=== PATIENT | male | born 1985 | race Caucasian/White ===

== ENCOUNTER → 2017-02-20 | Outpatient (CLI) | payer MEDICAID ==
--- NOTE | 2017-02-20 09:05 | US ---
EXAMINATION TYPE: US scrotum with doppler. Grayscale and color Doppler Duplex imaging performed of ramya he scrotum. DATE OF EXAM: 02/20/2017 COMPARISON: NONE CLINICAL HISTORY: N50.812 left testicular pain. Left testicle pain x 2 months EXAM MEASUREMENTS: TESTICLES: Right Testicle: 3.8 x 1.8 x 3.5 cm Left Testicle: 4.2 x 2.0 x 3.2 cm EPIDIDYMIS HEAD: Right Epididymis: 0.8 cm Left Epididymis: 1.4 cm Doppler performed to assess for testicular vascularity; good bilateral color flow and waveforms are s een. Presence of hydroceles: fluid collection lateral/inferior to right testicle = 1.5cm and medial/super ior to left testicle = 3.3cm Presence of varicoceles: yes, medial to right testicle and lateral to left testicle There is small right scrotal fluid collection or hydrocele which is not completely anechoic. Prominen t vessels which increase with Valsalva are noted bilaterally but measure under 3 mm in diameter. Smal l left scrotal fluid collection or hydrocele is noted. Comparison view at end of study shows symmetri c blood flow to both testicles. IMPRESSION: No asymmetric increased or diminished blood flow to left testicle or epididymis noted.
== END | disposition home or self-care (01) ==
LOC: RADUSWWP 08:12
PROVIDERS: ATTEND Family Medicine
DX: N50.812 Left testicular pain (principal)
CPT/HCPCS: 76870; 93975

== ENCOUNTER → 2017-07-16 | Outpatient (CLI) | payer MEDICAID ==
--- NOTE | 2017-07-16 13:04 | XR ---
EXAM TYPE: LUMBAR SPINE X RAY SERIES COMPARISON: NONE HISTORY: Pain TECHNIQUE: 3 views are submitted. FINDINGS: Alignment is anatomic. The pedicles are intact. The transverse processes are intact. There is no s pondylolisthesis. Surgical clips in the gallbladder fossa. Degenerative disc disease L4-5 and L5-S1. IMPRESSION: 1. Degenerative disc disease L4-5 and L5-S1. Consider MRI follow-up.
== END | disposition home or self-care (01) ==
LOC: RADXRMAIN 12:39
PROVIDERS: ATTEND Family Medicine
DX: M51.37 Other intervertebral disc degeneration, lumbosacral region (principal)
CPT/HCPCS: 72100

== ENCOUNTER → 2017-08-08 | Outpatient (CLI) | payer MEDICAID ==
--- NOTE | 2017-08-08 07:54 | MR ---
EXAMINATION TYPE: MR lumbar spine wo con DATE OF EXAM: 08/08/2017 7:42 AM COMPARISON: NONE HISTORY: DJD, back pain Multiplanar, MultiSpin echo imaging of the lumbar spine was performed. L1-L2: Normal disc appearance without desiccation. No herniation, protrusion or disc bulging. No ca nal stenosis is present. Foramina are patent bilaterally. L2-L3: Normal disc appearance without desiccation. No herniation, protrusion or disc bulging. No ca nal stenosis is present. Foramina are patent bilaterally. L3-L4: Normal disc appearance without desiccation. No herniation, protrusion or disc bulging. No ca nal stenosis is present. Foramina are patent bilaterally. L4-L5: There is mild disc desiccation noted. Posterior disc bulge with annular tear identified. Mild effacement ventral thecal sac. No evidence for central stenosis or lateral recess stenosis. Foramina are patent bilaterally. L5-S1: Moderate disc desiccation. Posterocentral subligamentous disc herniation effaces the ventral t hecal sac and may result in intermittent right lateral recess stenosis. No evidence for foraminal enc roachment. Lumbar segments are intact. No paraspinal masses are identified. Conus medullaris has a normal appe arance. IMPRESSION: 1. Degenerative disc disease as noted. 2. Subligamentous disc herniation L5-S1 as discussed. Posterior disc bulge L4-5 with annular tear.
== END | disposition home or self-care (01) ==
LOC: RADMRIMAIN 07:09
PROVIDERS: ATTEND Family Medicine
DX: M51.27 Other intervertebral disc displacement, lumbosacral region (principal); M51.36 Other intervertebral disc degeneration, lumbar region
CPT/HCPCS: 72148

== ENCOUNTER → 2017-12-12 | Outpatient (CLI) | payer MEDICAID ==
[2017-12-10 15:58] VITALS: BMI 38.0
[2017-12-12 12:05] VITALS: BP 142/82; PULSE 68; RESP 18
--- NOTE | 2017-12-12 12:33 | P.PAINCN ---
History of Present Illness - Reason for Consult Consult date: 12/12/17 - History of Present Illness 32 years old male with a chronic history of severe low back pain with radiation to the right lower extremity, pain started 7 months ago while he was working on his garage, he was sweeping , he hit his back against the metal door in his garage, and from that time he started complaining of severe low back pain with radiation to the right lower extremity associated with numbness and tingling sensation, he tried course of oral steroids which helped for temporary relief, and he did physical therapy which provided him with some benefit but he continued to have significant amount of pain that is interfering with his ability to function and work, he denies any fever or night sweats denies any change in the bowel movement or urination and no motor or sensory deficits. Past Medical History Past Medical History: Osteoarthritis (OA), Skin Disorder Additional Past Medical History / Comment(s): MRI showed arthritis in lower back , back injury 8 months ago, "bulging disks", eczema, History of Any Multi-Drug Resistant Organisms: None Reported Past Surgical History: Cholecystectomy Past Anesthesia/Blood Transfusion Reactions: No Reported Reaction Additional Past Anesthesia/Blood Transfusion Reaction / Comm: no family hx on fathers side Smoking Status: Current every day smoker - Past Family History Mother Family Medical History: Cancer Additional Family Medical History / Comment(s): breast Medications and Allergies Home Medications Medication Instructions Recorded Confirmed Type Naproxen Sodium [Aleve] 220 mg PO Q12HR PRN 12/10/17 12/10/17 History Allergies Allergy/AdvReac Type Severity Reaction Status Date / Time No Known Allergies Allergy Verified 12/10/17 15:50 Physical Exam Vitals: Vital Signs Pulse Resp BP Pulse Ox 12/12/17 11:58 68 18 142/82 97 - Constitutional Social history : smoker , NO ETOH , NO Illegal drugs use . Review of Systems : 1- Constitutional : no chills , no fever , no night sweats , 2- Ears : no ear discharge , no change in hearing 3-Nose, Mouth ,Throat ; no bleeding gums, no sore throat , no epistaxis , 4-Cardiovascular : Denies chest pain, , no orthopnea , no palpitation 5-Respiratory : Denies cough , no dyspnea , no hemoptysis 6-Gastrointestinal :, no change in bowel habits , no coffee- ground emesis . 7-Genitourinary : No hematuria , no discharge , no incontinence, 8-Musculoskeletal : No gait dysfunction , report low back pain , 9- Neurological : no ataxia , no tremor , no sezure , 10-Psychatric , no suicidal ideation no hallucination 11- Endocrine : no cold intolerence , no polyuria , no polydypsia , 12-Hematologic : no easy bleeding , no easy brusing , 13-Allergic / immunology : no angioedema , no wheezing ,no allergic rhinitis 14-Integumentary : no brttle nails , no change hair / nails , no foot/leg ulcers . Physical Examinations : 1-Constitutional : Cooperative , not in acute distress . 2-HEENT : nech ; supple , no Lymphadenopathy , no Thyromegaly , :eyes , no icterus, no photophobia . ENT : , normal oropharynx , no Thrush 3- Respiratory : Chest clear to auscultations Bilaterally , no wheezing . 4- Cardiovascular : regular rate and rhythem , S1 , S2 , no S3 , no S4. 5- Gastrointestinal: abdomen soft no tenderness , no organomegally . 6- Genitourinary : Defferred . 7-Integumentary : No cellulitis , no ulcers , normal skin turgor , no cyanotic . 8- neurologic : Cranial nerve II to XII intact , no focal neurological deffecit 9-psychatric : alert , oriented X 3 , appropriate affect , intact judgment and insight . 10-Lymphatic : no Lymphadenopathy. 11- musculoskeltal: normal gait . Lumber spine moter stegnth lower extremities ,thigh and legs 5/5 Right side , 5/5 Left side deep tendon reflexes : normal Knee Jerk , normal ankle Jerk negative lumber facet Loading Test Range of motion of the lumbar spine Flexion 60 degrees, extension 30 degrees strait leg raising test , positive at 30 degree right side, and its negative on the left side Fabere test positive RT ,and negative LT . Results Labs: MRI of the lumbar spine done 08/08/2017 L4 5 and L5-S1 disc this occasion and L5 -S1 posterior central disc herniation Assessment and Plan Plan: Assessment and plan=1-lumbar radiculopathy 2-lumbar disc herniation. Patient will be good candidate to have right- sided transforaminal epidural steroid injection at the L4 5, and L5-S1 under fluoroscopy guidance, procedure risk and benefits and alternatives discussed with the patient and he agreed with proceeding Time with Patient: Greater than 30 PQRS Measure Charge Sheet Measure #130: Documentation of Current Meds in Medical Chart: Patient's medications documented in chart Measure #226: Tobacco Use: Screen & Cessation Intervention: Pt screened for tobacco use AND intervention given Measure #111: Pneumonia Vaccination: Pneumococcal vaccine NOT administered or previously given Measure #47: Advance Care Plan: Advance care planning discussed & documented, pt chose/unable to give Measure #412: Opioid Treatment Agreement: No documentation of signed opioid treatment agreement Measure #408: Opioid Therapy Follow-up Evaluation: Patient had NO f/u eval minimum every 3 months during opioid therapy Measure #317: Preventitive Care & Scrn High Bld Press & F/U: Pre-hypertensive or hypertensive BP documented, pt will f/u with PCP Measure #128: Body Mass Index (BMI) Screening & Follow-up: BMI documented ABOVE normal parameters - f/u documented Measure #131: Pain Assessment & Follow-up: Pain positive & plan documented, Follow-up scheduled Measure #431: Unhealthy Alcohol Use Preventative Care & Scrn: Patient not identified as an unhealthy alcohol user PQRS Narrative: Smoking Status Current every day smoker Do You Want the Pneumonia No Vaccine AT THIS TIME? Blood Pressure 142/82 Pain Intensity [Right Lower 6 Back] Scale Used Numeric (1 - 10) Hx Alcohol Use (MH) Yes Home Medications: Ambulatory Orders Naproxen Sodium [Aleve] 220 mg PO Q12HR PRN 12/10/17
== END | disposition home or self-care (01) ==
LOC: PNWHC3 11:43
PROVIDERS: ATTEND Specialist
DX: G89.29 Other chronic pain (principal); M51.16 Intervertebral disc disorders with radiculopathy, lumbar region; F17.200 Nicotine dependence, unspecified, uncomplicated; Z79.1 Long term (current) use of non-steroidal anti-inflammatories (NSAID)
CPT/HCPCS: 99211

== ENCOUNTER 2017-12-19 09:21 | Day surgery (SDC) | payer MEDICAID ==
[2017-12-17 16:08] VITALS: BMI 38.0
[~2017-12-19 09:21] MED LIST: LACTATED RINGERS 1,000 ML IV SCH
[2017-12-19 10:04] VITALS: RESP 16
[2017-12-19] MEDS ORDERED: LIDOCAINE 1% 20 ML VIAL (10MG/ML) FOR IV START INTRADERMA ONE (10:06)
[2017-12-19] MEDS ORDERED: LACTATED RINGERS 1,000 ML IV ONE (11:42)
--- NOTE | 2017-12-19 11:44 | P.PCN ---
Date of Procedure: 12/19/17 Description of Procedure: PREOPERATIVE DIAGNOSIS: Lumbar radiculopathy POSTOPERATIVE DIAGNOSIS: Lumbar radiculopathy PROCEDURE 1. Transforaminal epidural steroid injection under fluoroscopic guidance right L4-L5, L5-S1 2. Lumbar epidurogram ANESTHESIA: Local with 1% lidocaine 3 ml ; IV conscious sedation with Versed 2 mg and fentanyle 100 micrograms. PROCEDURE INDICATION: The patient with low back pain and radiculopathy symptoms unresponsive to conservative treatment. PROCEDURE DESCRIPTION / TECHNIQUE: The patient was seen and identified in the preoperative area. Risks, benefits, complications, and alternatives were discussed with the patient. The patient agreed to proceed with the procedure and signed the consent. IV was started, and vital signs were stable. Patient was taken to the OR and time out was completed. The patient was placed in the prone position on procedure table and a pillow was placed under the abdomen to reduce lumbar lordosis. The lumbosacral area was prepped and draped in the usual sterile fashion. Vital signs were closely monitored during the procedure. Conscious sedation was used. The infraneural approach was utilized during this procedure Using oblique fluoroscopy, the chin of the ``Vignesh dog at RIGHT [id number] and the skin and deeper tissues just below was localized with 1% lidocaine. Subsequently, a 22-gauge 3.5-inch spinal needle was advanced under a tunneled view fluoroscopic guidance just lateral to the superior articular process of RIGHT L4. Under lateral fluoroscopy, the needle was then advanced to the posterior border of the L4-L5 interforaminal space. After negative aspiration of CSF and blood and with no paresthesias, 1 mL of Omnipaque-240 contrast dye was injected excellent epidurogram and outlining L L4 nerve root. Subsequently , of the 8ml solution consisting of 20mg/ml dexamethasone with 6 ml PF normal saline, 4 ml injected at L2-L3 space. Needle was removed and the same procedure was repeated at the Right L5-S1 space. At the end of the procedure, skin was cleansed, and bandages were applied. COMPLICATIONS: None COMMENTS: DISPOSITION / PLANS: The patient was placed in a supine position and transferred to the recovery area in a stable condition for observation. There was no evidence of lower extremity motor or sensory deficit after the procedure. Patient was discharged from the recovery room after meeting discharge criteria. Home discharge instructions were given to the patient by the staff. The patient was reexamined prior to discharge. We'll repeat procedure in 4 weeks time
[2017-12-19 11:59] VITALS: BP 107/69; PULSE 69
--- NOTE | 2017-12-19 12:00 | FL ---
EXAMINATION TYPE: FL guided pain mgmt statistic DATE OF EXAM: 12/19/2017 HISTORY: Flouroscopy time 24 seconds of fluoroscopy provided. IMPRESSION: 1. Fluoroscopy time.
== END 2017-12-19 12:20 | disposition home or self-care (01) ==
LOC: ORPAIN 09:21
PROVIDERS: ATTEND Anesthesiology
DX: G89.29 Other chronic pain (principal); M54.16 Radiculopathy, lumbar region; M51.17 Intervertebral disc disorders with radiculopathy, lumbosacral region; M19.90 Unspecified osteoarthritis, unspecified site; F17.200 Nicotine dependence, unspecified, uncomplicated
CPT/HCPCS: 64483; 64484; 99152

== ENCOUNTER 2018-01-03 08:24 | Day surgery (SDC) | payer MEDICAID ==
[2017-12-27 15:25] VITALS: BMI 36.9
[2018-01-03 09:09] VITALS: TEMP 98.4
[2018-01-03] MEDS ORDERED: LACTATED RINGERS 1,000 ML IV SCH (09:15)
[2018-01-03] MEDS ORDERED: LIDOCAINE 1% 20 ML VIAL (10MG/ML) FOR IV START INTRADERMA ONE (09:17)
--- NOTE | 2018-01-03 10:24 | P.PCN ---
Date of Procedure: 01/03/18 Procedure(s) Performed: DESCRIPTION OF PROCEDURE(S): PREOPERATIVE DIAGNOSIS: Lumbar radiculopathy POSTOPERATIVE DIAGNOSIS: Lumbar radiculopathy PROCEDURE 1. Transforaminal epidural steroid injection under fluoroscopic guidance RIGHT L4, L5 2. Lumbar epidurogram ANESTHESIA: IV sedation with Versed 2 mg and fentanyle 100 micrograms. PROCEDURE INDICATION: The patient with low back pain and radiculopathy symptoms unresponsive to conservative treatment. PROCEDURE DESCRIPTION / TECHNIQUE: The patient was seen and identified in the preoperative area. Risks, benefits, complications, and alternatives were discussed with the patient. The patient agreed to proceed with the procedure and signed the consent. IV was started, and vital signs were stable. Patient was taken to the OR and time out was completed. The patient was placed in the prone position on procedure table and a pillow was placed under the abdomen to reduce lumbar lordosis. The lumbosacral area was prepped and draped in the usual sterile fashion. Vital signs were closely monitored during the procedure. Conscious sedation was used. Using oblique fluoroscopy, the chin of the ``Vignesh dog at RIGHT L3 pedicle and the skin and deeper tissues just below was localized with 1% lidocaine. Subsequently, a 25-gauge 3.5-inch spinal needle was advanced under a tunneled view fluoroscopic guidance just underneath the chin of the ``Vignesh dog RIGHT L4. Under lateral fluoroscopy, the needle was then advanced to the posterior border of the L3 and [id number] space. After negative aspiration of CSF and blood and with no paresthesias, 1 mL of Omnipaque-240 contrast dye was injected excellent epidurogram and outlining L4 nerve root. Subsequently, 0.25 % bupivicaine, 10mg dexamethasone, normal saline was injected with a total of 2.5ml per level after negative aspiration. Needle was removed and the same procedure was repeated at the Right L4-L5 space. At the end of the procedure, skin was cleansed, and bandages were applied. COMPLICATIONS: None COMMENTS: DISPOSITION / PLANS: The patient was placed in a supine position and transferred to the recovery area in a stable condition for observation. There was no evidence of lower extremity motor or sensory deficit after the procedure. Patient was discharged from the recovery room after meeting discharge criteria. Home discharge instructions were given to the patient by the staff. The patient was reexamined prior to discharge. We'll repeat procedure in 4 weeks time
[2018-01-03] MEDS ORDERED: IV FLUID CONTINUATION 450 ML IV ONE (10:30)
[2018-01-03 10:37] VITALS: RESP 16
[2018-01-03 10:54] VITALS: BP 114/59; PULSE 73
--- NOTE | 2018-01-03 13:01 | FL ---
Fluoroscopy HISTORY: Pain 16 seconds fluoroscopy time supplied to the referring clinician. 1 intraoperative C-arm images docum ent the procedure. See dictated report from anesthesia.
== END 2018-01-03 11:03 | disposition home or self-care (01) ==
LOC: ORPAIN 08:24
PROVIDERS: ATTEND Hospitalist
DX: M54.16 Radiculopathy, lumbar region (principal)
CPT/HCPCS: 64483; J2250; J1100; J3010; Q9966; 99152

== ENCOUNTER → 2018-02-14 | Outpatient (CLI) | payer MEDICAID ==
[2018-02-14 14:01] VITALS: BP 129/75; PULSE 73; RESP 18
--- NOTE | 2018-02-14 14:17 | P.PN ---
Subjective Progress Note Date: 02/14/18 This is a follow-up visit for this 32 years old male with a chronic history of severe low back pain with radiation to the right lower extremity diagnosed with lumbar radiculopathy, with done right-sided transforaminal epidural steroid injection at L4 5 and at L5-S1 levels, the procedure was done twice currently , he reports he has no pain in his pain completely gone after the transforaminal epidural steroid injection is very happy with the result of the treatment, he denies any motor or sensory deficit he denies any fever or night sweats. Objective - Vital Signs Vital signs: Vital Signs Temp Pulse 73 02/14/18 13:54 Resp 18 02/14/18 13:54 BP 129/75 02/14/18 13:54 Pulse Ox 95 02/14/18 13:54 Intake & Output 02/13/18 02/14/18 02/14/18 18:59 06:59 18:59 Weight 113.398 kg - Exam Physical Examinations : 1-Constitutiona : Cooperative , not in acute distress . 2- musculoskeltal : Lumber spine moter stegnth lower extremities , thigh and legs 5/5 Right side , 5/5 Left side Assessment and Plan Plan: Assessment and plan=lumbar radiculopathy Pain improved after right-sided transforaminal epidural steroid injections L4 5/L5-S1 He will follow up with the pain clinic when necessary Time with Patient: Less than 30
== END | disposition home or self-care (01) ==
LOC: PNWHC3 13:47
PROVIDERS: ATTEND Specialist
DX: M54.16 Radiculopathy, lumbar region (principal)
CPT/HCPCS: 99211

== ENCOUNTER → 2020-02-09 | Outpatient (CLI) | payer MEDICAID ==
[2020-02-09 13:02] VITALS: BP 129/87; PULSE 72; RESP 16; TEMP 98.3
--- NOTE | 2020-02-09 13:20 | P.PN ---
Subjective Progress Note Date: 02/09/20 This is a 34-year-old gentleman with history of lower back pain and radiation to the right leg down to the knee level. The patient denies any paresthesia in the right lower extremity or any weakness. He also denies any bowel or bladder dysfunction. The pain comes in episodes which last for a few days and then goes away for 1 or 2 days and then comes back for a few days. The patient uses [id number] medications for his pain. He did have transforaminal epidural steroid injection at the L4 5 and L5-S1 level about 2 years ago which gave him good and prolonged pain relief and he is requesting to have the same procedure done again. Patient denies new-onset weakness, bowel/bladder incontinence, or any other signs or symptoms of cauda equina syndrome. There are no signs of acute intoxication, and no indications of medication diversion or overuse. In addition to above, 13-point review of systems is also negative for chest pain, shortness of breath, changes in vision, changes in hearing, new onset weakness, abdominal pain, diarrhea, extreme fatigue, malaise, fever, skin changes, homicidal or suicidal ideation, or bowel or bladder incontinence. Vital Signs: Reviewed in EMR Gen: AAOx3, NAD HEENT: PERRLA,hearing grossly normal Pulm: resp unlabored Neck: supple, trachea midline Neuro exam of the lower extremities: Normal bilaterally Straight leg raising test: Mildly positive on the right side Elkin's test: Negative bilaterally Tenderness in the paravertebral musculature: Positive on the lumbar paravertebral musculature on the right side Neuro: CN II-XII grossly intact, Imaging: Reviewed in EMR/chart Assessment: Lumbar spondylosis without myelopathy Right lumbar neuro foraminal stenosis and leg pain Plan: 1. Explanation: Opioid and psychological risk scores were reviewed. Diagnoses, prognoses, and multiple treatment options including but not limited to physical therapy, interventional therapies, adjuvant medical therapies, narcotic medication therapies, and surgery were discussed with the patient and all questions were answered to the patient's satisfaction. 2. Opioid agreement: Signed with the patient and the patient is warned not to use opioids while driving or before driving and not to combine opioids with benzodiazepines or alcohol. 3. Counseling: The patient was counseled extensively on SMOKING CESSATION, BODY MASS INDEX, EXERCISE. Specifically, the patient was instructed regarding the importance of smoking cessation, obesity, and exercise in the context of both chronic pain and overall health. 4. Procedures: Scheduled for transforaminal epidural steroid injection at the L4 5 and L5-S1 level on the right side under fluoroscopic guidance 5. Consultations: None 6. Investigations: None 7. Medications: None 8. Disposition: Return for the above-mentioned procedure as soon as possible 9. Maps were reviewed and were appropriate. Objective - Vital Signs Vital signs: Vital Signs Temp 98.3 F 02/09/20 12:56 Pulse 72 02/09/20 12:56 Resp 16 02/09/20 12:56 BP 129/87 02/09/20 12:56 Pulse Ox 97 02/09/20 12:56
== END | disposition home or self-care (01) ==
LOC: PNWHC3 12:38
PROVIDERS: ATTEND Anesthesiology
DX: M48.061 Spinal stenosis, lumbar region without neurogenic claudication (principal); M47.816 Spondylosis without myelopathy or radiculopathy, lumbar region
CPT/HCPCS: 99211

== ENCOUNTER 2020-03-02 11:05 | Day surgery (SDC) | payer MEDICAID ==
[2020-03-01 13:09] VITALS: BMI 37.2
[2020-03-02 11:22] VITALS: RESP 18; TEMP 98
[2020-03-02] MEDS ORDERED: DEXAMETHASONE SOD PHOSPHATE 10 MG/ML 1 ML VIAL ONE (12:33)
[2020-03-02] MEDS ORDERED: IOPAMIDOL M200 10 ML VIAL ONE (12:33)
[2020-03-02] MEDS ORDERED: LIDOCAINE 1% INJ 10MG/ML (20 ML MDV) ONE (12:33)
--- NOTE | 2020-03-02 12:52 | P.PCN ---
Date of Procedure: 03/02/20 Surgeon: Thomas Rivas Pathology: none sent Condition: stable Disposition: PACU Description of Procedure: PREOPERATIVE DIAGNOSIS: Lumbar radiculopathy POSTOPERATIVE DIAGNOSIS: Lumbar radiculopathy PROCEDURE 1. Transforaminal epidural steroid injection under fluoroscopic guidance at L4 5 on the right side 2. Lumbar epidurogram. SURGEON: Thomas Rivas MD [employer]ER: ANESTHESIA: Local with 1% lidocaine; IV sedation with Versed and fentanyl. EBL: Minimal PROCEDURE INDICATION: The patient with low back pain and radiculopathy symptoms unresponsive to conservative treatment. PROCEDURE DESCRIPTION / TECHNIQUE: The patient was seen and identified in the preoperative area. Risks, benefits, complications, and alternatives were discussed with the patient. The patient agreed to proceed with the procedure and signed the consent. IV was started, and vital signs were stable. Patient was taken to the OR and time out was completed. The patient was placed in the prone position on procedure table and a pillow was placed under the abdomen to reduce lumbar lordosis. The lumbosacral area was prepped and draped in the usual sterile fashion. Critical pause was taken. Vital signs were closely monitored during the procedure. Conscious sedation was used during the procedure to decrease patients anxiety. The vertebral body of the lumbar vertebra L4 was squared off by tilting the C-arm cephalad then the C-arm was tilted to the right oblique position and the target point was at the 6 o'clock position of the pedicle of L4 then skin and deeper tissues were localized with 1% lidocaine. Subsequently, a 22-gauge 3.5-inch spinal needle was advanced under a tunneled view fluoroscopic guidance just underneath the chin of the Vignesh dog at the . Under lateral fluoroscopy, the needle was then advanced to the middle of the upper one third of the foramen between( L4 and L5). After negative aspiration of CSF and blood and with no paresthesias, 1 mL of omnipaque contrast dye was injected excellent epidurogram and outlining of the L nerve root was identified. Subsequently, 2 mL of block solution containing 10 mg of Decadron and 1 mL of Lidocaine 1% PF was injected. Needle was removed and the same . At the end of the procedure, skin was cleansed, and bandages were applied. COMPLICATIONS: None COMMENTS: DISPOSITION / PLANS: The patient was placed in a supine position and transferred to the recovery area in a stable condition for observation. There was no evidence of lower extremity motor or sensory deficit after the procedure. Patient was discharged from the recovery room after meeting discharge criteria. Home discharge instructions were given to the patient by the staff.
[2020-03-02 13:09] VITALS: BP 131/79; PULSE 69
--- NOTE | 2020-03-02 14:13 | FL ---
Fluoroscopy HISTORY: Pain 13 seconds fluoroscopy time supplied to the referring clinician. 4 intraoperative C-arm images docum ent the procedure. See dictated report from anesthesia.
--- NOTE | 2020-03-04 10:21 | CDI ---
Outpatient Documentation Clarification Form Date: 03/04/20 CDS/Tax Compliance Representative Name: Brittanie Houston Phone: If any questions, call Viviana Han [employer] at [phone] Patient Name: Clinton Almeida Admit Date: 03/02/20 Discharge Date: 03/02/20 ATTENTION: The [facility] Coding Staff appreciate your assistance in clarifying documentation. Please respond to the clarification below the line at the bottom and electronically sign. The [facility] Coding staff will review the response and follow-up if needed. Please note: Queries are made part of the Legal Health Record. If you have any questions, please contact the [employer]. Dear Dr. Rivas, Please provide clarification as to whether Moderate/conscious sedation was used. The operative report states Local with 1% lidocaine: IV sedation with Versed and Fentanyl. The Pain Procedure Record under Anesthesia Plan has Moderate sedation checked but there are not dosage amount with the times under versed and fentanyl. Please clarify. Thank you for your kind consideration. MTDD
== END 2020-03-02 13:20 | disposition home or self-care (01) ==
LOC: ORPAIN 11:05
PROVIDERS: ATTEND Anesthesiology
DX: M54.16 Radiculopathy, lumbar region (principal); E66.9 Obesity, unspecified; Z68.38 Body mass index [BMI] 38.0-38.9, adult
CPT/HCPCS: 64483; J1100; J2001; Q9966

== ENCOUNTER → 2023-03-06 | Outpatient (CLI) | payer OTHER ==
--- NOTE | 2023-03-06 12:33 | MR ---
EXAMINATION TYPE: MR lumbar spine wo con DATE OF EXAM: 03/06/2023 COMPARISON: MRI lumbar spine 08/08/2017 HISTORY: Chronic low back pain, RLE radiculopathy. TECHNIQUE: Multiplanar, multisequence images of the lumbar spine were acquired without IV contrast. FINDINGS: Lumbar segments are intact. No paraspinal masses are identified. Conus medullaris has a normal appe arance. Disc desiccation at L4-L5 and L5-S1. T12-L1: No herniation, protrusion or disc bulging. No canal stenosis is present. Foramina are paten t bilaterally. L1-L2: No herniation, protrusion or disc bulging. No canal stenosis is present. Foramina are patent bilaterally. L2-L3: No herniation, protrusion or disc bulging. No canal stenosis is present. Foramina are patent bilaterally. L3-L4: No herniation, protrusion or disc bulging. No canal stenosis is present. Foramina are patent bilaterally. L4-L5: Broad-based disc bulge with annular fissure redemonstrated. No significant central canal steno sis. No neural foraminal stenosis. L5-S1: Central disc protrusion with mild effacement of the anterior thecal sac redemonstrated. No sig nificant neural foraminal stenosis. Disc abuts the exiting right L5 nerve root (series 401, image 11) . IMPRESSION: 1. Overall stable examination with L5-S1 disc herniation with mild central canal stenosis and abutme nt of the exiting right L5 nerve root. 2. Disc bulge L4-L5 with annular fissure redemonstrated. No significant central canal stenosis at th is level.
== END | disposition home or self-care (01) ==
LOC: RADMRIMAIN 10:25
PROVIDERS: ATTEND Orthopaedic Surgery Orthopaedic Surgery of the Spine
DX: M48.061 Spinal stenosis, lumbar region without neurogenic claudication (principal); M51.16 Intervertebral disc disorders with radiculopathy, lumbar region; M51.17 Intervertebral disc disorders with radiculopathy, lumbosacral region; M62.830 Muscle spasm of back
CPT/HCPCS: 72148

== ENCOUNTER → 2023-04-03 | Outpatient (CLI) | payer OTHER ==
[2023-04-03 09:51] VITALS: BP 116/72; PULSE 65; RESP 16; TEMP 98.1
--- NOTE | 2023-04-03 09:55 | P.PAINPG ---
PQRS Measure Charge Sheet Comment: HISTORY OF PRESENT ILLNESS: A 37 yr old male as a referral from Dr Crocker presents today w severe and chronic R sided LBP x 4 yrs secondary to DDD, spondylosis and facet arthropathy without myelopathy for evaluation. Pt states pain level is provoked at 8 /10 in intensity, constant, localized in the R lower lumbar spine, predominantly axial, achy in character w occasional shooting pain towards the R lateral calf. Pain is provoked by bending & lifting. Pain is alleviated by PT 4 yrs ago w physician guided home exercises daily since, medications (Tyl, Ibu), topicals, alteranting heating pad use, reclining, repositioning and rest. Oswestry axial pain score at 22 . PMH: OA PSH: R TFESI L4-L5 x3 (2019), R TFESI L5-S1 x1 (2019), Lap Cholecystectomy (2015) SH: Daily tobacco use, No ETOH abuse, No illicit drug use FH: Mo- Breast CA All: See list Meds: See list REVIEW OF ORGAN SYSTEMS: CONSTITUTIONAL: No fevers or chills. No recent weight loss. NEUROLOGICAL: + numbness and tingling along the distal extremities. No seizure disorders or headaches. MUSCULOSKELETAL: + pain PSYCHIATRIC: Denies current depression or suicidal thoughts. Physical Examinations : Constitutional : Cooperative , not in acute distress . Neurologic : Cranial nerve II to XII intact. No focal neurological deficits. Psychiatric : alert & oriented x 3. Matching mood & appropriate affect. Judgment & insight intact. Musculoskeletal : Cervical Spine Motor strength in the deltoid and biceps: Normal right side. Normal Left side Motor strength biceps and the wrist extensors: Normal right side . Normal left side Motor strength in the triceps muscle: Normal right side. Normal left side Deep tendon reflexes: Normal at the biceps. Normal at Brachioradialis. Normal at triceps Vertebral body tenderness to deep palpation over Cervical facet loading test: positive bilaterally Spurling test: positive bilaterally Neck distraction test: positive bilaterally Asya sign: positive bilaterally Lumbar spine Motor strength lower extremities ,thigh and legs 5/5 Right side , 5/5 Left side Deep tendon reflexes : Normal Knee Jerk. Normal Ankle Jerk Vertebral body tenderness over L5 Boles Test positive Lumbar facet Loading Test: positive Right / positive Left Range of motion of the lumbar spine Flexion 30 degrees, extension 10 degrees Straight Leg Raise test: Left/ Right positive at <35 degrees Tara test: positive right / positive left. Severe tenderness over the Sacroiliac joint on the Right / Left sides Gaenslen test: positive bilaterally Seated flexion test: positive bilaterally. Sacral spine : Severe tenderness over the Sacroiliac joint: right side / left side Range of motion: Flexion of the lumbar spine <60 degrees Range of motion: Extension of the lumbar spine <20 degrees Gaenslen's Test positive Tara test: positive right side / left side Thigh Thrust Test Sacral Thrust Test Imaging: Noncontrast of the lumbar spine from 03/06/23 reviewed Assessment/ Plan : Lumbar DDD Recommendation of R TFESI L5-S1 #1. May need a series of injections for optimal pain relief. Risks, benefits of procedure discussed and patient verbalized understanding. Admits to anti- coagulant use or medical history of diabetes. Protocol for discontinuation/ continuation of medications mane procedure di scussed. All questions answered. I have spent greater than 30 minutes on patient care today. Dr Pride was available by phone for the evaluation of this patient. The time was used to review the medical records including relevant urine studies and Prescription history (MAPs), review of the available imaging, evaluation and examination of the patient, coordination of care with the medical staff and if applicable referring physicians, as well as creation of the medical record - Pain Location Bilateral Lower Back Non-Pharmacological Interventions: Home Exercise, Position/Reposition, Stretching Pharmacological Interventions: Epidural, PRN Medication PQRS Narrative: Smoking Status Current some day smoker Hx Alcohol Use (MH) Yes: rare Home Medications: Ambulatory Orders Acetaminophen Tab [Tylenol] 650 mg PO Q4H PRN 02/06/20 Ibuprofen [Motrin Ib] 800 mg PO Q8H PRN 02/09/20 Controlled Substance Measures - Controlled Substance Measures Is patient prescribed a controlled substance at discharge?: No
== END ==
LOC: PNWHC3 08:53
PROVIDERS: ATTEND Specialist
DX: M54.16 Radiculopathy, lumbar region (principal); M54.50 Low back pain, unspecified; M54.14 Radiculopathy, thoracic region; M51.36 Other intervertebral disc degeneration, lumbar region; F17.200 Nicotine dependence, unspecified, uncomplicated
CPT/HCPCS: 99211

== ENCOUNTER 2023-04-17 10:34 | Day surgery (SDC) | payer OTHER ==
[2023-04-17 11:13] VITALS: TEMP 97.4
[2023-04-17] MEDS ORDERED: ROPIVACAINE 5MG/ML 20ML VIAL ONE (12:20)
[2023-04-17] MEDS ORDERED: DEXAMETHASONE SOD PHOSPHATE 10 MG/ML 1 ML VIAL ONE (12:20)
[2023-04-17 12:50] VITALS: BP 115/70; PULSE 74; RESP 16
--- NOTE | 2023-04-17 12:52 | P.PCN ---
Description of Procedure: PREOPERATIVE DIAGNOSIS: 1-Lumbar radiculopathy . 2-lumbar degenerative disc disease. 3-lumbar spondylosis with lumbar facet arthropathy without myelopathy POSTOPERATIVE DIAGNOSIS: 1-lumbar radiculopathy. 2-lumbar degenerative disc disease. 3-lumbar spondylosis with facet arthropathy without myelopathy PROCEDURE 1. Transforaminal epidural steroid injection under fluoroscopic guidance at RIGHT L5-S1 level. (Fluoroscopy images stored on file in the radiology Department ) 2. Lumbar epidurogram . ANESTHESIA: Local with 1% lidocaine 5 ml. subcutaneously. Continuous pulse ox, EKG, blood pressure and verbal communication was maintained with the patient. EBL: Minimal PROCEDURE INDICATION: The patient with low back pain and radiculopathy symptoms unresponsive to conservative treatment. The patient was seen and identified in the preoperative area. Risks, benefits, complications, and alternatives were discussed with the patient. The patient agreed to proceed with the procedure and signed the consent. IV was started, and vital signs were stable. PROCEDURE DESCRIPTION / TECHNIQUE: After getting consent, patient was taken to the OR and time out was completed. The patient was placed in the prone position on procedure table and a pillow was placed under the abdomen to reduce lumbar lordosis. The lumbosacral area was prepped and draped in the usual sterile fashion. Critical pause was taken. After injecting 5 mL of plain 1% lidocaine subcutaneously, under oblique view of the fluoroscope, a 22-gauge spinal needle was introduced under the tunnel view of the fluoroscope on the RIGHT side and the needle was advanced so that the tip of the needle was at the posterior inferior quadrant of the intervertebral foramen at the lateral view of the fluoroscope and in the lateral third of the facet column in the AP view of the fluoroscope. Negative CSF, negative blood, negative paresthesia. After needle position confirmation by AP and cross table lateral view, 3 mL of Isovue-M 200 contrast was injected under continuous fluoroscope. No contrast was noted in the intrathecal or intravascular space. The epidurogram was noted. Again after repeated negative aspiration 2.5 mL solution was injected which consists 1.5 mL of normal saline mixed with 1 mL of 20 mg dexamethasone. Needle was removed . At the end of the procedure, skin was cleansed, and bandages were applied. DISPOSITION / PLANS: No complication. The patient tolerated the procedure well. The patient was placed in a supine position and transferred to the recovery area in a stable condition for observation. There was no evidence of lower extremity motor or sensory deficit after the procedure. Patient was discharged from the recovery room after meeting discharge criteria. Home discharge instructions were given to the patient by the staff. The patient was reexamined prior to discharge.
--- NOTE | 2023-04-17 15:00 | FL ---
EXAMINATION TYPE: FL guided pain mgmt statistic DATE OF EXAM: 04/17/2023 HISTORY: Fluoroscopy time Total dose area product (DAP) in uGy*m?, mGy*cm? (or similar): 630396 IMPRESSION: 1. Fluoroscopy time.
== END 2023-04-17 13:04 | disposition home or self-care (01) ==
LOC: ORPAIN 10:34
PROVIDERS: ATTEND Pain Medicine Interventional Pain Medicine
DX: M51.16 Intervertebral disc disorders with radiculopathy, lumbar region (principal); M47.26 Other spondylosis with radiculopathy, lumbar region
CPT/HCPCS: 64483; J1100; J2795

== ENCOUNTER → 2023-05-16 | Outpatient (CLI) | payer OTHER ==
[2023-05-16 09:38] VITALS: BP 121/82; PULSE 71; RESP 16; TEMP 97.3
--- NOTE | 2023-05-16 14:32 | P.PAINPG ---
PQRS Measure Charge Sheet Comment: HISTORY OF PRESENT ILLNESS: A 37 yr old male presents today w severe and chronic R sided LBP x 4 yrs secondary to DDD, spondylosis and facet arthropathy without myelopathy for evaluation s/p R TFESI L5-S1 #1. Pt states he experienced 99% pain relief x 3 wks s/p procedure. Pt states pain level is provoked at 1 /10 in intensity, constant, localized in the R lower lumbar spine, predominantly axial, achy in character w occasional shooting pain towards the R lateral calf. Pain is provoked by bending & lifting. Pain is alleviated by PT 4 yrs ago w physician guided home exercises daily since, medications, topicals, alteranting heating pad use, reclining, repositioning and rest. Oswestry axial pain score at 12 . Interventional procedures include R TFESI L5-S1 #1 Medications include Tyl, Ibu REVIEW OF ORGAN SYSTEMS: CONSTITUTIONAL: No fevers or chills. No recent weight loss. NEUROLOGICAL: + numbness and tingling along the distal extremities. No seizure disorders or headaches. MUSCULOSKELETAL: + pain PSYCHIATRIC: Denies current depression or suicidal thoughts. Physical Examinations : Constitutional : Cooperative , not in acute distress . Neurologic : Cranial nerve II to XII intact. No focal neurological deficits. Psychiatric : alert & oriented x 3. Matching mood & appropriate affect. Judgment & insight intact. Musculoskeletal : Cervical Spine Motor strength in the deltoid and biceps: Normal right side. Normal Left side Motor strength biceps and the wrist extensors: Normal right side . Normal left side Motor strength in the triceps muscle: Normal right side. Normal left side Deep tendon reflexes: Normal at the biceps. Normal at Brachioradialis. Normal at triceps Vertebral body tenderness to deep palpation over Cervical facet loading test: positive bilaterally Spurling test: positive bilaterally Neck distraction test: positive bilaterally Asya sign: positive bilaterally Lumbar spine Motor strength lower extremities ,thigh and legs 5/5 Right side , 5/5 Left side Deep tendon reflexes : Normal Knee Jerk. Normal Ankle Jerk Vertebral body tenderness over L5 Boles Test positive Lumbar facet Loading Test: positive Right / positive Left Range of motion of the lumbar spine Flexion 30 degrees, extension 10 degrees Straight Leg Raise test: Left/ Right positive at <35 degrees Tara test: positive right / positive left. Severe tenderness over the Sacroiliac joint on the Right / Left sides Gaenslen test: positive bilaterally Seated flexion test: positive bilaterally. Sacral spine : Severe tenderness over the Sacroiliac joint: right side / left side Range of motion: Flexion of the lumbar spine <60 degrees Range of motion: Extension of the lumbar spine <20 degrees Gaenslen's Test positive Tara test: positive right side / left side Thigh Thrust Test Sacral Thrust Test Imaging: Noncontrast of the lumbar spine from 03/06/23 reviewed Assessment/ Plan : Lumbar DDD Will manage residual pain and may RTC on an as needed basis. All questions answered. I have spent greater than 30 minutes on patient care today. Dr Pride was available by phone for the evaluation of this patient. The time was used to review the medical records including relevant urine studies and Prescription history (MAPs), review of the available imaging, evaluation and examination of the patient, coordination of care with the medical staff and if applicable referring physicians, as well as creation of the medical record PQRS Narrative: Smoking Status Current some day smoker Hx Alcohol Use (MH) Yes: rare Home Medications: Ambulatory Orders Acetaminophen Tab [Tylenol] 650 mg PO Q4H PRN 02/06/20 Ibuprofen [Motrin Ib] 800 mg PO Q8H PRN 02/09/20 Controlled Substance Measures - Controlled Substance Measures Is patient prescribed a controlled substance at discharge?: No
== END ==
LOC: PNWHC3 09:10
PROVIDERS: ATTEND Specialist
DX: M51.36 Other intervertebral disc degeneration, lumbar region (principal); M47.816 Spondylosis without myelopathy or radiculopathy, lumbar region; F17.200 Nicotine dependence, unspecified, uncomplicated
CPT/HCPCS: 99211

== ENCOUNTER 2023-07-17 09:51 | Day surgery (SDC) | payer OTHER ==
[2023-07-17 10:46] VITALS: TEMP 97.7
[2023-07-17] MEDS ORDERED: DEXAMETHASONE SOD PHOSPHATE 10 MG/ML 1 ML VIAL ONE (11:11)
[2023-07-17] MEDS ORDERED: IOPAMIDOL M200 10 ML VIAL ONE (11:11)
--- NOTE | 2023-07-17 11:33 | P.PCN ---
Date of Procedure: 07/17/23 Procedure(s) Performed: DESCRIPTION OF PROCEDURE(S): PREOPERATIVE DIAGNOSIS: Lumbar radiculopathy POSTOPERATIVE DIAGNOSIS: Lumbar radiculopathy PROCEDURE 1. Transforaminal epidural steroid injection under fluoroscopic guidance Bilateral L5-S1 2. Lumbar epidurogram ANESTHESIA: Local with 1% lidocaine 3 ml PROCEDURE INDICATION: The patient with low back pain and radiculopathy symptoms unresponsive to conservative treatment. PROCEDURE DESCRIPTION / TECHNIQUE: The patient was seen and identified in the preoperative area. Risks, benefits, complications, and alternatives were discussed with the patient. The patient agreed to proceed with the procedure and signed the consent. IV was started, and vital signs were stable. Patient was taken to the OR and time out was completed. The patient was placed in the prone position on procedure table and a pillow was placed under the abdomen to reduce lumbar lordosis. The lumbosacral area was prepped and draped in the usual sterile fashion. Vital signs were closely monitored during the procedure. Using oblique fluoroscopy, the chin of the ``Vignesh dog at RIGHT L5 pedicle and the skin and deeper tissues just below was localized with 1% lidocaine. Subsequently, a 22-gauge 5-inch spinal needle was advanced under a tunneled view fluoroscopic guidance just underneath the chin of the ``Vignesh dog RIGHT L5. Under lateral fluoroscopy, the needle was then advanced to the posterior border of the L5-S1 interforaminal space. After negative aspiration of CSF and blood and with no paresthesias, 1 mL of Omnipaque-240 contrast dye was injected excellent epidurogram and outlining L5 nerve root. Subsequently, of the 10ml solution consisting of 2ml 20mg/ml dexamethasone with 8 ml PF normal saline with 5ml injected at L5-S1 space. Left L5-S1 approach was done with the inferolateral approach, secondary to overriding iliac crest. 22-gauge 5 inch spinal needle was advanced to the ear the L5 lamina. Then, under lateral fluoroscopy it was advanced into the inferior aspect of the neuroforamen after negative aspiration for CSF and heme 1 mL of Omnipaque contrast was injected. Then during anterior posterior view excellent epidurogram with contrast and the L5-S1 interspace was identified. Again after negative aspiration for heme and CSF 5 ML's of the above solution was injected. At the end of the procedure, skin was cleansed, and bandages were applied. COMPLICATIONS: No postoperative complications, however patient became a little vasovagal during injection of the left L5-S1 space. Heart rate dropped the 40s and patient became diaphoretic. The procedure had been completed at the time. Vital signs were rechecked multiple times and patient was no longer feeling diaphoretic. Patient was checked on in the postanesthesia recovery unit and doing well COMMENTS: DISPOSITION / PLANS: The patient was placed in a supine position and transferred to the recovery area in a stable condition for observation. There was no evidence of lower extremity motor or sensory deficit after the procedure. Patient was discharged from the recovery room after meeting discharge criteria. Home discharge instructions were given to the patient by the staff. The patient was reexamined prior to discharge. We'll repeat procedure in 4 weeks time Fluoroscopic image was saved and stored
--- NOTE | 2023-07-17 11:44 | FL ---
EXAMINATION TYPE: FL guided pain mgmt statistic DATE OF EXAM: 07/17/2023 HISTORY: Fluoroscopy time Total dose area product (DAP) in uGy*m?, mGy*cm? (or similar): 0.87847 IMPRESSION: 1. Fluoroscopy time.
[2023-07-17] MEDS ORDERED: LACTATED RINGERS 1,000 ML IV SCH (11:45)
[2023-07-17 11:56] VITALS: BP 118/78; PULSE 72; RESP 16
== END 2023-07-17 11:55 | disposition home or self-care (01) ==
LOC: ORPAIN 09:51
PROVIDERS: ATTEND Anesthesiology
DX: M54.16 Radiculopathy, lumbar region (principal)
CPT/HCPCS: 64483; J1100; Q9966

== ENCOUNTER → 2023-08-13 | Outpatient (CLI) | payer OTHER ==
[2023-08-13 09:50] VITALS: BP 108/71; PULSE 66; RESP 16; TEMP 97.3
--- NOTE | 2023-08-13 13:56 | P.PAINPG ---
PQRS Measure Charge Sheet Comment: HISTORY OF PRESENT ILLNESS: A 37 yr old male presents today w severe and chronic R sided LBP x 4 yrs secondary to DDD, spondylosis and facet arthropathy without myelopathy for evaluation s/p BL TFESI L5-S1 #2. Pt states he experienced 50 % pain relief x 4 wks s/p procedure. Pt states pain level is provoked at 4 /10 in intensity, constant, localized in the R lower lumbar spine, predominantly axial, achy in character w occasional shooting pain towards the R lateral calf. Pain is provoked by bending & lifting. Pain is alleviated by PT 4 yrs ago w physician guided home exercises daily since, medications, topicals, alteranting heating pad use, reclining, repositioning and rest. Oswestry axial pain score at 9 . Interventional procedures include R TFESI L5-S1 #2 Medications include Tyl, Ibu REVIEW OF ORGAN SYSTEMS: CONSTITUTIONAL: No fevers or chills. No recent weight loss. NEUROLOGICAL: + numbness and tingling along the distal extremities. No seizure disorders or headaches. MUSCULOSKELETAL: + pain PSYCHIATRIC: Denies current depression or suicidal thoughts. Physical Examinations : Constitutional : Cooperative , not in acute distress . Neurologic : Cranial nerve II to XII intact. No focal neurological deficits. Psychiatric : alert & oriented x 3. Matching mood & appropriate affect. Judgment & insight intact. Musculoskeletal : Cervical Spine Motor strength in the deltoid and biceps: Normal right side. Normal Left side Motor strength biceps and the wrist extensors: Normal right side . Normal left side Motor strength in the triceps muscle: Normal right side. Normal left side Deep tendon reflexes: Normal at the biceps. Normal at Brachioradialis. Normal at triceps Vertebral body tenderness to deep palpation over Cervical facet loading test: positive bilaterally Spurling test: positive bilaterally Neck distraction test: positive bilaterally Asya sign: positive bilaterally Lumbar spine Motor strength lower extremities ,thigh and legs 5/5 Right side , 5/5 Left side Deep tendon reflexes : Normal Knee Jerk. Normal Ankle Jerk Vertebral body tenderness over L5 Boles Test positive Lumbar facet Loading Test: positive Right / positive Left Range of motion of the lumbar spine Flexion 30 degrees, extension 10 degrees Straight Leg Raise test: Left< Right positive at <35 degrees Tara test: positive right / positive left. Severe tenderness over the Sacroiliac joint on the Right / Left sides Gaenslen test: positive bilaterally Seated flexion test: positive bilaterally. Sacral spine : Severe tenderness over the Sacroiliac joint: right side / left side Range of motion: Flexion of the lumbar spine <60 degrees Range of motion: Extension of the lumbar spine <20 degrees Gaenslen's Test positive Tara test: positive right side / left side Thigh Thrust Test Sacral Thrust Test Imaging: Noncontrast of the lumbar spine from 03/06/23 reviewed Assessment/ Plan : Lumbar DDD Will manage residual pain and may RTC on an as needed basis. All questions answered. I have spent greater than 30 minutes on patient care today. Dr Pride was available by phone for the evaluation of this patient. The time was used to review the medical records including relevant urine studies and Prescription history (MAPs), review of the available imaging, evaluation and examination of the patient, coordination of care with the medical staff and if applicable referring physicians, as well as creation of the medical record PQRS Narrative: Smoking Status Current some day smoker Hx Alcohol Use (MH) Yes: rare Home Medications: Ambulatory Orders Acetaminophen Tab [Tylenol] 650 mg PO Q4H PRN 02/06/20 Ibuprofen [Motrin Ib] 800 mg PO Q8H PRN 02/09/20 Lidocaine 5% Patch [Lidoderm] 1 each TP DAILY PRN 30 Days #30 patch 06/25/23 Controlled Substance Measures - Controlled Substance Measures Is patient prescribed a controlled substance at discharge?: No
== END ==
LOC: PNWHC3 09:06
PROVIDERS: ATTEND Specialist
DX: M51.36 Other intervertebral disc degeneration, lumbar region (principal); M47.816 Spondylosis without myelopathy or radiculopathy, lumbar region; F17.200 Nicotine dependence, unspecified, uncomplicated
CPT/HCPCS: 99211